=== PATIENT | female | born 1985 | race African-American/Black ===

== ENCOUNTER 2017-11-26 18:05 | Emergency (ER) | payer MEDICARE, MEDICAID ==
[2017-11-27] MEDS: ONDANSETRON (ODT) 4 MG TAB ODT (07:29)
[2017-11-27] MEDS: HYDROmorphONE 2 MG/ML SYG IM (07:29)
[2017-11-27] MEDS: DIPHENHYDRAMINE 50 MG INJ IM (07:29)
== END 2017-11-27 09:35 | disposition home or self-care (01) ==
LOC: FTE 18:05
DX: D57.00 Hb-SS disease with crisis, unspecified (principal); R07.9 Chest pain, unspecified
CPT/HCPCS: 93005; 96372; 99284-25